=== PATIENT | female | born 1945 | race Caucasian/White ===

== ENCOUNTER 2016-08-06 08:55 | Day surgery (SDC) | payer MEDICARE, BC ==
[~2016-08-06] VITALS: Ht 160 cm; Wt 74.8 kg
[~2016-08-06 08:55] MED LIST: ADULT ASPIRIN E81 MG PO; ATORVASTATIN CA10 MG PO; CALCIUM600 M2 PO; CELEXA20 M1 PO; DICLOFENAC50 MG PO; FISH OIL1200 M1 PO; MULTI VIT PO; OMEPRAZOLE20 MG PO; PROBIOTIC1 TAB PO; SYNTHROID88 MCG PO; TEMAZEPAM30 MG PO
[2016-08-06 12:15] VITALS: BP 120/62
== END 2016-08-06 12:31 | disposition home or self-care (01) ==
LOC: ENDO 08:55 → ORM 10:55 → ENDO 12:31
PROVIDERS: ATTEND Internal Medicine Gastroenterology
PROC: 0DBK8ZX Excision of Ascending Colon, Via Natural or Artificial Opening Endoscopic, Diagnostic (ICD-10-PCS; principal; 2016-08-06)
PROC: 0DBP8ZX Excision of Rectum, Via Natural or Artificial Opening Endoscopic, Diagnostic (ICD-10-PCS; 2016-08-06)
PROC: 0DBN8ZX Excision of Sigmoid Colon, Via Natural or Artificial Opening Endoscopic, Diagnostic (ICD-10-PCS; 2016-08-06)
PROC: 0DBL8ZX Excision of Transverse Colon, Via Natural or Artificial Opening Endoscopic, Diagnostic (ICD-10-PCS; 2016-08-06)
PROC: 0DBH8ZX Excision of Cecum, Via Natural or Artificial Opening Endoscopic, Diagnostic (ICD-10-PCS; 2016-08-06)
DX: K51.90 Ulcerative colitis, unspecified, without complications (principal); K57.30 Diverticulosis of large intestine without perforation or abscess without bleeding; K64.4 Residual hemorrhoidal skin tags; K64.8 Other hemorrhoids; K21.9 Gastro-esophageal reflux disease without esophagitis; K44.9 Diaphragmatic hernia without obstruction or gangrene; R10.13 Epigastric pain; E03.9 Hypothyroidism, unspecified; E78.00 Pure hypercholesterolemia, unspecified; Z87.891 Personal history of nicotine dependence